=== PATIENT | male | born 1965 | race Caucasian/White ===

== ENCOUNTER 2016-10-02 12:26 | Emergency (ER) | payer MEDICARE, MEDICAID ==
[2016-10-02] MEDS ORDERED: Ketorolac INJ* 60 MG/2 ML VIAL IM ONE (12:39)
[2016-10-02 12:48] VITALS: BP 135/76
--- NOTE | 2016-10-02 13:05 | ED ---
Lower Extremity - HPI Summary HPI Summary: Pt here w/ Lt foot pain this morning. Was walking dog when all of a sudden had a "pop" in foot followed by pain along sole of foot. Worse w/ moving foot. H/o wearing orthotics 20 years ago - has not worn them since. Denies numbness, tingling, weakness. Has not removed sock/shoe yet to observe foot. - History of Current Complaint Chief Complaint: EDExtremityLower Stated Complaint: FOOT PAIN Time Seen by Provider: 10/02/16 12:38 Hx Obtained From: Patient Pain Intensity: 9 - Allergies/Home Medications Allergies/Adverse Reactions: Allergies Allergy/AdvReac Type Severity Reaction Status Date / Time No Known Allergies Allergy Verified 01/11/13 13:11 PMH/Surg Hx/FS Hx/Imm Hx Previously Healthy: Yes Endocrine/Hematology History: Reports: Autoimmune Disease - psoriasis Denies: Hx Anticoagulant Therapy, Hx Blood Disorders Respiratory History: Reports: Hx Seasonal Allergies, Hx Sleep Apnea, Other Respiratory Problems/Disorders - Sleep Apnea, uses C-Pap GI History: Reports: Hx Gastroesophageal Reflux Disease Musculoskeletal History: Reports: Hx Back Problems, Other Musculoskeletal History - Chronic Pain; h/o orthotic use for feet Neurological History: Reports: Other Neuro Impairments/Disorders - pain clinic pt - Surgical History Surgery Procedure, Year, and Place: Appendectomy; Cholecystectomy; Bilateral Great Toenails removed Infectious Disease History: No Infectious Disease History: Denies: Traveled Outside the [place] in Last 30 Days - Social History Lives: With Family Alcohol Use: None Substance Use Type: Reports: None Smoking Status (MU): Never Smoked Tobacco Review of Systems Positive: no symptoms reported Musculoskeletal: Other - see HPI Skin: Negative Neurological: Negative Positive: Anxious All Other Systems Reviewed And Are Negative: Yes Physical Exam Triage Information Reviewed: Yes Vital Signs On Initial Exam: Initial Vitals Temp Pulse Resp BP 96.9 F 97 20 135/76 10/02/16 12:44 10/02/16 12:44 10/02/16 12:44 10/02/16 12:44 Vital Signs Reviewed: Yes Appearance: Positive: Well-Appearing, Pain Distress, Obese Skin: Positive: Warm, Dry - plaques silver flaking skin on erythematous base over body; no erythema or ecchymosis over affected area on foot Eyes: Positive: EOMI ENT: Positive: Hearing grossly normal Respiratory/Lung Sounds: Positive: Breath Sounds Present Cardiovascular: Positive: Pulses are Symmetrical in both Upper and Lower Extremities Musculoskeletal: Positive: Strength/ROM Intact - pain in plantar surface of foot w/ toe movement and ankle movement, Pain @ - MT's - toes and ankle are NTTP Neurological: Positive: Sensory/Motor Intact, Alert, Oriented to Person Place, Time Psychiatric: Positive: Anxious Procedures - Splinting Location: [facility] Hand-Made Type: fiberglass Splint: posterior walking Pre-Proc Neuro Vasc Exam: normal Post-Proc Neuro Vasc Exam: normal Diagnostics - Vital Signs Vital Signs Temp Pulse Resp BP Pulse Ox 10/02/16 12:48 96.9 F 97 20 135/76 98 10/02/16 12:44 96.9 F 97 20 135/76 - Laboratory Lab Statement: Any lab studies that have been ordered have been reviewed, and results considered in the medical decision making process. Lower Extremity Course/Dx - Diagnoses Provider Diagnoses: Fracture of metatarsal of left foot, closed Discharge - Discharge Plan Condition: Stable Disposition: HOME Prescriptions: Ibuprofen TAB* [Motrin TAB* 800 MG] 800 mg PO Q8HR #20 tab Patient Education Materials: Foot Fracture in Adults (ED), [employer] Splints (ED), Crutch Instructions (ED) Referrals: Jan Quinonez MD [Medical Doctor] - Additional Instructions: Keep splint clean, dry and in place until seen by orthopedics - call today to schedule follow-up appointment later this week or next. Use crutches to remain non-weight bearing Rest, ice, elevate You may take ibuprofen 800mg every 8 hours with food for pain. You also have pain medications at home which you may take for breakthrough pain.
--- NOTE | 2016-10-02 13:22 | RAD ---
INDICATION: Left foot injury. TECHNIQUE: 3 views of the left foot were obtained. FINDINGS: The bones are normal alignment. There is a transverse nondisplaced fracture of the proximal diaphysis and metaphysis of the fifth metatarsal. No other fractures are seen. Joint spaces appear maintained. IMPRESSION: TRANSVERSE NONDISPLACED FRACTURE OF THE FIFTH METATARSAL.
[2016-10-02] MEDS ORDERED: HYDROcodone/ACETAMIN 5-325 MG* 1 TAB PO ONE (13:53)
== END 2016-10-02 14:51 | disposition home or self-care (01) ==
LOC: ED 12:26
DX: S92.355A Nondisplaced fracture of fifth metatarsal bone, left foot, initial encounter for closed fracture (principal); X58.XXXA Exposure to other specified factors, initial encounter; Y93.K1 Activity, walking an animal; Y92.9 Unspecified place or not applicable; L40.9 Psoriasis, unspecified; K21.9 Gastro-esophageal reflux disease without esophagitis; E66.9 Obesity, unspecified; Z90.49 Acquired absence of other specified parts of digestive tract
CPT/HCPCS: 96372; 99283; J1885

== ENCOUNTER 2019-01-17 12:17 | Emergency (ER) | payer MEDICARE, MEDICAID ==
[2019-01-17] MEDS ORDERED: Ketorolac INJ* 30 MG/ML 1 ML VIAL IV PUSH ONE (12:37)
[2019-01-17] MEDS ORDERED: Ondansetron INJ* 2 MG/ML VIAL IV ONE (12:38)
--- NOTE | 2019-01-17 12:39 | ED ---
Complex/Multi-Sys Presentation - HPI Summary HPI Summary: Patient is a 53 y/o M presenting to [facility] with complaints of right back pain and right-sided abdominal pain for the past week. He describes the pain as constant and rates it 9/10. Nausea is endorsed but vomiting is denied. He denies PMHx. PSHx of cholecystectomy and appendectomy is noted. He reports some marijuana usage and notes that he is a former tobacco smoker. Alcohol and any other substance usage is denied. FMHx is denied as well. Home medications and allergies are reviewed. - History Of Current Complaint Chief Complaint: EDAbdPain Hx Obtained From: Patient Onset/Duration: Lasting Weeks, Still Present Timing: Constant, Weeks Severity Currently: Severe Location: Pain At: - right back, right abdomen Associated Signs And Symptoms: Positive: Nausea, Abdominal Pain, Back Pain. Negative: Vomiting - Allergies/Home Medications Allergies/Adverse Reactions: Allergies Allergy/AdvReac Type Severity Reaction Status Date / Time No Known Allergies Allergy Verified 01/17/19 12:20 PMH/Surg Hx/FS Hx/Imm Hx Endocrine/Hematology History: Denies: Hx Anticoagulant Therapy, Hx Blood Disorders Respiratory History: Reports: Hx Seasonal Allergies, Hx Sleep Apnea, Other Respiratory Problems/Disorders - Sleep Apnea, uses C-Pap GI History: Reports: Hx Gastroesophageal Reflux Disease Musculoskeletal History: Reports: Hx Back Problems, Other Musculoskeletal History - Chronic Pain; h/o orthotic use for feet Neurological History: Reports: Other Neuro Impairments/Disorders - pain clinic pt - Surgical History Surgery Procedure, Year, and Place: Appendectomy; Cholecystectomy; Bilateral Great Toenails removed Infectious Disease History: No Infectious Disease History: Denies: Traveled Outside the [place] in Last 30 Days - Family History Known Family History: Negative: Cardiac Disease, Hypertension, Diabetes - Social History Alcohol Use: None Substance Use Type: Reports: None Smoking Status (MU): Never Smoked Tobacco Review of Systems Positive: Abdominal Pain, Nausea. Negative: Vomiting Musculoskeletal: Other - positive - right back pain All Other Systems Reviewed And Are Negative: Yes Physical Exam - Summary Physical Exam Summary: VITAL SIGNS: Reviewed. GENERAL: Patient is a well-developed and obese male who is lying comfortable in the stretcher. Patient is in acute distress secondary to pain. Right CVA tenderness is noted. HEAD AND FACE: No signs of trauma. No ecchymosis, hematomas or skull depressions. No sinus tenderness. EYES: PERRLA, EOMI x 2, No injected conjunctiva, no nystagmus. EARS: Hearing grossly intact. Ear canals and tympanic membranes are within normal limits. MOUTH: Oropharynx within normal limits. NECK: Supple, trachea is midline, no adenopathy, no JVD, no carotid bruit, no c- spine tenderness, neck with full ROM. CHEST: Symmetric, no tenderness at palpation. LUNGS: Clear to auscultation bilaterally. No wheezing or crackles. CVS: Regular rate and rhythm, S1 and S2 present, no murmurs or gallops appreciated. ABDOMEN: Soft, obese. Mild tenderness of the right flank, no other tenderness noted. No signs of distention. No rebound, no guarding, and no masses palpated. Bowel sounds are normal. EXTREMITIES: FROM in all major joints, no edema, no cyanosis or clubbing. NEURO: Alert and oriented x 3. No acute neurological deficits. Speech is normal and follows commands. SKIN: Dry and warm. Triage Information Reviewed: Yes Vital Signs On Initial Exam: Initial Vitals Temp Pulse Resp BP Pulse Ox 96.5 F 110 19 158/94 98 01/17/19 12:18 01/17/19 12:18 01/17/19 12:18 01/17/19 12:18 01/17/19 12:18 Vital Signs Reviewed: Yes Procedures - Sedation Patient Received Moderate/Deep Sedation with Procedure: No Diagnostics - Vital Signs Vital Signs Temp Pulse Resp BP Pulse Ox 01/17/19 12:18 96.5 F 110 19 158/94 98 - Laboratory Result Diagrams: 01/17/19 12:45 01/17/19 12:45 Lab Statement: Any lab studies that have been ordered have been reviewed, and results considered in the medical decision making process. - CT ABD/PEL CT CT Interpretation Completed By: Radiologist Summary of CT Findings: 1. No renal calculi or signs of hydronephrosis. 2. Sigmoid diverticulosis. There potentially is wall thickening consistent with mild. diverticulitis but in the absence of oral IV contrast evaluation of the bowel is very. limited. Please correlate to clinical history and physical exam findings. THIS REPORT WAS REVIEWED BY DR. HINSON. - EKG 1256 Cardiac Rate: NL - rate of 90 BPM EKG Rhythm: Sinus Rhythm Summary of EKG Findings: EKG showed NSR with rate of 90 BPM, no ST elevations. This EKG was reviewed and interpreted by Dr. Hinson. Re-Evaluation - Re-Evaluation First Eval Re-Evaluation Time: 15:46 Change: Improved Comment: I reexamined the patient and his symptoms have resolved. Patient has no abdominal tenderness or abdominal pain. Therefore I do not believe that the patient has acute diverticulitis in the absence of increased levels of the wbc s and CRP. Therefore since the patient is asymptomatic, the patients symptoms have resolved, I discussed my physical exam and findings with the patient and he will follow with the primary care physician. He was given instructions to return to the emergency department if the symptoms return or if he develops any other symptom. The patient understands and agrees. Complex Multi-Symp Course/Dx Assessment/Plan: Patient is a 53-year-old male who presents to the emergency department with chief complaint of right abdominal pain and right back pain. Initially, the patient was given IV fluids and Toradol for the pain. The patient noted continued pain, therefore, he was given a dose of morphine. Blood test results without any significant abnormality. Urinalysis is negative for UTI. Abdominal/pelvic CT impression: No renal calculi or signs of hydronephrosis. Sigmoid diverticulosis. There is potentially wall thickening consistent with diverticulitis but in the absence of oral IV contrast evaluation of the above what is very limited. I reexamined the patient and his symptoms have resolved. Patient has no abdominal tenderness or abdominal pain. Therefore I do not believe that the patient has acute diverticulitis in the absence of increased levels of the wbcs and CRP. Therefore since the patient is asymptomatic, the patients symptoms have resolved, I discussed my physical exam and findings with the patient and he will follow with the primary care physician. He was given instructions to return to the emergency department if the symptoms return or if he develops any other symptom. The patient understands and agrees. - Diagnoses Provider Diagnoses: Right flank pain, Right-sided back pain Discharge ED - Sign-Out/Discharge Documenting (check all that apply): Patient Departure - discharge - Discharge Plan Condition: Stable Disposition: HOME Patient Education Materials: Flank Pain (ED), Back Pain (ED) Referrals: Nolberto Alexandre CARDIAC NURSE [Primary Care Provider] - 3 Days Additional Instructions: PLEASE RETURN TO ED FOR ANY NEW OR WORSENING SYMPTOMS. PLEASE FOLLOW UP WITH YOUR PRIMARY CARE PHYSICIAN WITHIN THE NEXT THREE DAYS. - Billing Disposition and Condition Condition: STABLE Disposition: Home - Attestation Statements Document Initiated by Scribahsan: Yes Documenting Scribe: PAM KOHLI Provider For Whom Yusra is Documenting (Include Credential): BRANNON HINSON MD Scribe Attestation: IPAM, scribed for BRANNON HINSON MD on 01/17/19 at 1849. Scribe Documentation Reviewed: Yes Provider Attestation: The documentation as recorded by the PAM chowdhury accurately reflects the service I personally performed and the decisions made by me, BRANNON HINSON MD Status of Scribe Document: Viewed
[2019-01-17 12:57] LABS: ABS Eosinophils 0.1 10^3/ul (0-0.6); ABS Lymphocytes 1.3 10^3/ul (1.0-4.8); ABS Monocytes 0.5 10^3/ul (0-0.8); Eosinophil % 1.6 %; Hematocrit 39 % (42-52); Hemoglobin 13.2 g/dL (14.0-18.0); Lymphocyte % 22.2 %; Mean Corpuscular HGB Conc 34 g/dL (31-36); Mean Corpuscular Hemoglobin 31 pg (27-31); Mean Corpuscular Volume 92 fL (80-94); Mean Platelet Volume 9.8 fL (7.4-10.4); Platelet Count 146 10^3/uL (150-450); Red Blood Count 4.22 10^6 /uL (4.18-5.48); Red Cell Distribution Width 13 % (10-15); White Blood Count 5.9 10^3/uL (3.5-10.8)
[2019-01-17 13:27] LABS: ALT 33 U/L (7-52); AST 28 U/L (13-39); Albumin 3.9 g/dL (3.2-5.2); Albumin/Globulin Ratio 1.3 (1-3); Alkaline Phosphatase 46 U/L (34-104); Anion Gap 6 mmol/L (2-11); BUN/Creatinine Ratio 11.8 (8-20); Blood Urea Nitrogen 13 mg/dL (6-24); C Reactive Protein 7.87 mg/L (<8.01); CO2 Carbon Dioxide 30 mmol/L (22-32); Calcium 9.2 mg/dL (8.6-10.3); Chloride 102 mmol/L (101-111); EGFR African American 85.4 (>60); EGFR Non-African American 70.6 (>60); Glucose 100 mg/dL (70-100); Potassium 3.9 mmol/L (3.5-5.0); Sodium 138 mmol/L (135-145); Total Protein 6.9 g/dL (6.4-8.9)
[2019-01-17] MEDS ORDERED: Morphine 4 MG/ML VIAL (1 ml) 4 MG/ML VIAL IV ONE (14:39)
[2019-01-17 14:56] LABS: Urine Appearance Clear; Urine Color Yellow
[2019-01-17 14:57] LABS: Urine Bilirubin Negative (Negative); Urine Blood Negative (Negative); Urine Glucose Negative (Negative); Urine Ketones Negative (Negative); Urine Nitrite Negative (Negative); Urine Protein Negative (Negative); Urine Specific Gravity 1.005 (1.010-1.030); Urine Urobilinogen Negative (Negative)
[2019-01-17 16:06] VITALS: BP 145/86
== END 2019-01-17 16:04 | disposition home or self-care (01) ==
LOC: ED 12:17
DX: K57.32 Diverticulitis of large intestine without perforation or abscess without bleeding (principal); M54.9 Dorsalgia, unspecified; R10.9 Unspecified abdominal pain; R11.0 Nausea; Z90.49 Acquired absence of other specified parts of digestive tract; Z90.89 Acquired absence of other organs
CPT/HCPCS: 36415; 74176; 80053; 81003; 83605; 83690; 85025; 86140; 93005; 96374; 96375; 99283; J1885; J2270; J2405

== ENCOUNTER 2023-05-31 15:46 | Inpatient (IN) ==
[2023-05-31 16:32] LABS: ABS Lymphocytes 0.7 10^3/uL (1.0-4.8); ABS Monocytes 0.6 10^3/uL (0.0-1.1); ABS Neutrophils 5.9 10^3/uL (1.5-7.6); ABS Nucleated RBC 0.01 10^3/ul; Hematocrit 42.1 % (38-53); Hemoglobin 14.7 g/dL (13.2-16.3); Lymphocyte % 9.9 %; Mean Corpuscular Hemoglobin 31.2 pg (27-33); Mean Corpuscular Hgb Conc 34.9 g/dL (31-36); Mean Corpuscular Volume 89.3 fL (80-97); Nucleated Red Blood Cells % 0.2 %/100WBC (0.0-0.8); Platelet Count 112 10^3/uL (150-450); Red Blood Count 4.71 10^6/uL (4.06-5.63); Red Cell Distribution Width 13.8 % (12-17); White Blood Count 7.3 10^3/uL (3.6-10.2)
[2023-05-31] MEDS: NS 0.9% 1000 ml BAG 1,000 ML IV ONE (16:50)
[2023-05-31 16:51] LABS: INR 1.15 (0.83-1.13)
[2023-05-31 17:20] LABS: Albumin/Globulin Ratio 1.2 (1-3); C Reactive Protein 99.08 mg/L (<8.01); Calcium 8.8 mg/dL (8.6-10.3); Creatinine, Serum 1.12 mg/dL (0.67-1.17); Globulin 3.4 g/dL (2-4); Potassium 3.4 mmol/L (3.5-5.0); Total Protein 7.4 g/dL (6.4-8.9); eGFR CKD-EPI 77.6 (>60)
[2023-05-31 17:39] LABS: Venous Bicarbonate HCO3 24.8 mmol/L (24-28)
[2023-05-31 18:07] LABS: High Sensitivity Troponin 1 Hr 34 pg/mL (<20)
[2023-05-31] MEDS: Iohexol 300 (CONTRAST) 10 ML SDV IV ONE (18:45)
[2023-05-31 19:04] LABS: HIV 4th Generation Nonreactive (Nonreactive)
[2023-05-31] MEDS: Acetaminophen IV 1 GM/100ML 1,000 MG/100 ML BAG IV ONE (19:33)
[2023-05-31 19:38] LABS: Urine Appearance Clear; Urine Bacteria Absent /HPF (Absent); Urine Bilirubin Negative (Negative); Urine Blood 1+ (Negative); Urine Color Yellow; Urine Glucose Negative (Negative); Urine Ketones Negative (Negative); Urine Nitrite Negative (Negative); Urine Protein 1+ (>=30 mg/dL) (Negative); Urine Red Blood Cell 2+(6-10/hpf) /HPF (0-Trace); Urine Specific Gravity >1.050 (1.002-1.030); Urine Urobilinogen 1+ (Negative); Urine White Blood Cell Trace(0-5/hpf) /HPF (0-Trace); Urine pH 5.5 (5.0-8.0)
[2023-05-31] MEDS: Piperacillin/Tazobac 3.375 BAG 3.375 GM/100 ML BAG IV ONE (20:01)
[2023-05-31] MEDS ORDERED: Zosyn per Pharmacy NOTE FOLLOW UP SCH (21:00)
[2023-05-31] MEDS ORDERED: Metoprolol Tartrate 5 mg VIAL 5 ml VIAL (1 mg/ml) IV PRN (21:26)
[2023-05-31] MEDS: Pantoprazole VIAL 40 MG VIAL IV SCH (23:03)
[2023-05-31] MEDS: Metoprolol Tartrate 5 mg VIAL 5 ml VIAL (1 mg/ml) IV SCH (23:03)
[2023-05-31] MEDS: Acetaminophen IV 1 GM/100ML 1,000 MG/100 ML BAG IV PRN (23:04)
[2023-05-31] MEDS: Enoxaparin 40 MG/0.4 ML SYR SUBCUT ONE (23:04)
[2023-05-31] MEDS: KCL 20 MEQ/100 ML IVPREMIX 20 MEQ/100 ML BAG IV SCH (23:05)
[2023-05-31] MEDS: Enoxaparin 40 MG/0.4 ML SYR SUBCUT SCH (23:05)
[2023-05-31] MEDS ORDERED: Fluticasone NASAL SPRAY 50MCG 16 gm SPRAY BTL INTRANASAL PRN (23:24)
[2023-05-31] MEDS: Lactated Ringers 1000 ml BAG 1,000 ML IV SCH (23:33)
[2023-05-31] MEDS: KCL premix 10 MEQ/50 ML x 6 RUNS IV SCH (23:33)
[2023-05-31] MEDS: NS 0.9% 1000 ml BAG 1,000 ML IV SCH (23:37)
[2023-06-01] MEDS ORDERED: ZOSYN 3.375 GM Q8H per EXTENDED INFUSION IV SCH
[2023-06-01] MEDS: ZOSYN 3.375 GM Q8H per EXTENDED INFUSION IV SCH (00:29)
[2023-06-01] MEDS ORDERED: Benzocaine/Menthol Pain Spray - BTL 78 GM TOPICAL ONE (03:11)
[2023-06-01] MEDS: Phenol 1.4% Throat Spray BTL MT PRN (04:17)
[2023-06-01 05:46] LABS: Albumin 3.4 g/dL (3.2-5.2); Albumin/Globulin Ratio 1.3 (1-3); Calcium 7.7 mg/dL (8.6-10.3); Creatinine, Serum 1.01 mg/dL (0.67-1.17); Globulin 2.6 g/dL (2-4); Magnesium 1.9 mg/dL (1.9-2.7); Potassium 3.6 mmol/L (3.5-5.0); Total Bilirubin 1.7 mg/dL (0.2-1.0); eGFR CKD-EPI 87.8 (>60)
[2023-06-01 06:21] LABS: Hematocrit 40.3 % (38-53); Hemoglobin 13.6 g/dL (13.2-16.3); Mean Corpuscular Hemoglobin 30.7 pg (27-33); Mean Corpuscular Hgb Conc 33.8 g/dL (31-36); Mean Corpuscular Volume 90.7 fL (80-97); Red Blood Count 4.44 10^6/uL (4.06-5.63); Red Cell Distribution Width 13.8 % (12-17); White Blood Count 8.4 10^3/uL (3.6-10.2)
[2023-06-01 06:24] LABS: ABS Lymphocytes 1.4 10^3/uL (1.0-4.8); ABS Monocytes 0.4 10^3/uL (0.0-1.1); ABS Neutrophils 6.5 10^3/uL (1.5-7.6); ABS Nucleated RBC 0.01 10^3/ul; Lymphocyte % 17.1 %; Mean Platelet Volume 10.5 fL (7.5-11.2); Nucleated Red Blood Cells % 0.1 %/100WBC (0.0-0.8)
[2023-06-01 06:57] LABS: Hematocrit 37.3 % (38-53); Hemoglobin 12.7 g/dL (13.2-16.3)
[2023-06-01] MEDS: NS 0.9% 1000 ml BAG 1,000 ML IV SCH (13:07)
[2023-06-01] MEDS: Enoxaparin 40 MG/0.4 ML SYR SUBCUT ONE (21:15)
[2023-06-01] MEDS: CMCS:Ranolazine 500 mg TAB ER (NF) PO SCH (21:15)
[2023-06-02 06:01] LABS: ABS Lymphocytes 1.2 10^3/uL (1.0-4.8); ABS Monocytes 0.7 10^3/uL (0.0-1.1); ABS Neutrophils 4.7 10^3/uL (1.5-7.6); Eosinophil % 0.1 %; Hematocrit 34.4 % (38-53); Hemoglobin 11.9 g/dL (13.2-16.3); Lymphocyte % 17.7 %; Mean Corpuscular Hemoglobin 31.2 pg (27-33); Mean Corpuscular Hgb Conc 34.7 g/dL (31-36); Mean Corpuscular Volume 89.9 fL (80-97); Mean Platelet Volume 10.3 fL (7.5-11.2); Nucleated Red Blood Cells % 0.1 %/100WBC (0.0-0.8); Platelet Count 97 10^3/uL (150-450); Red Blood Count 3.82 10^6/uL (4.06-5.63); Red Cell Distribution Width 13.6 % (12-17); White Blood Count 6.6 10^3/uL (3.6-10.2)
[2023-06-02 06:16] LABS: Calcium 7.7 mg/dL (8.6-10.3); Creatinine, Serum 0.88 mg/dL (0.67-1.17); Potassium 3.5 mmol/L (3.5-5.0); eGFR CKD-EPI 101.5 (>60)
[2023-06-02] MEDS: DULoxetine DR 60 mg CAP PO SCH (08:44)
[2023-06-02] MEDS: Ondansetron 4 mg VIAL 2 MG/ML 2 ml VIAL IV PRN (10:17)
[2023-06-02] MEDS: Aspirin EC 81 mg TAB.EC (enteric coated) PO SCH (13:40)
[2023-06-02] MEDS: Enoxaparin 40 MG/0.4 ML SYR SUBCUT SCH (21:06)
[2023-06-03 05:15] LABS: ABS Lymphocytes 1.5 10^3/uL (1.0-4.8); ABS Monocytes 0.8 10^3/uL (0.0-1.1); ABS Neutrophils 6.1 10^3/uL (1.5-7.6); Eosinophil % 0.3 %; Hematocrit 34.6 % (38-53); Lymphocyte % 17.5 %; Mean Corpuscular Hemoglobin 31.2 pg (27-33); Mean Corpuscular Hgb Conc 34.6 g/dL (31-36); Mean Corpuscular Volume 90.1 fL (80-97); Mean Platelet Volume 10.5 fL (7.5-11.2); Platelet Count 113 10^3/uL (150-450); Red Blood Count 3.84 10^6/uL (4.06-5.63); Red Cell Distribution Width 13.4 % (12-17); White Blood Count 8.5 10^3/uL (3.6-10.2)
[2023-06-03 05:32] LABS: Albumin 3.1 g/dL (3.2-5.2); Albumin/Globulin Ratio 1.1 (1-3); Calcium 7.8 mg/dL (8.6-10.3); Creatinine, Serum 0.93 mg/dL (0.67-1.17); Globulin 2.9 g/dL (2-4); Potassium 3.5 mmol/L (3.5-5.0); Total Bilirubin 1.1 mg/dL (0.2-1.0)
[2023-06-04 06:07] LABS: ABS Lymphocytes 1.4 10^3/uL (1.0-4.8); ABS Neutrophils 5.8 10^3/uL (1.5-7.6); Eosinophil % 0.4 %; Hematocrit 32.5 % (38-53); Hemoglobin 11.3 g/dL (13.2-16.3); Lymphocyte % 16.4 %; Mean Corpuscular Hemoglobin 31.2 pg (27-33); Mean Corpuscular Hgb Conc 34.7 g/dL (31-36); Mean Corpuscular Volume 89.8 fL (80-97); Mean Platelet Volume 11.2 fL (7.5-11.2); Platelet Count 135 10^3/uL (150-450); Red Blood Count 3.62 10^6/uL (4.06-5.63); Red Cell Distribution Width 13.4 % (12-17); White Blood Count 8.2 10^3/uL (3.6-10.2)
[2023-06-04 07:43] LABS: Calcium 7.8 mg/dL (8.6-10.3); Creatinine, Serum 0.95 mg/dL (0.67-1.17); Potassium 3.5 mmol/L (3.5-5.0); eGFR CKD-EPI 94.5 (>60)
[2023-06-05 06:35] LABS: ABS Lymphocytes 1.3 10^3/uL (1.0-4.8); ABS Monocytes 0.9 10^3/uL (0.0-1.1); ABS Neutrophils 5.7 10^3/uL (1.5-7.6); Eosinophil % 0.6 %; Hemoglobin 11.4 g/dL (13.2-16.3); Lymphocyte % 16.4 %; Mean Corpuscular Hemoglobin 31.1 pg (27-33); Mean Corpuscular Hgb Conc 34.6 g/dL (31-36); Mean Corpuscular Volume 89.8 fL (80-97); Mean Platelet Volume 10.2 fL (7.5-11.2); Platelet Count 191 10^3/uL (150-450); Red Blood Count 3.67 10^6/uL (4.06-5.63); Red Cell Distribution Width 13.4 % (12-17)
[2023-06-05 06:41] LABS: Calcium 7.8 mg/dL (8.6-10.3); Creatinine, Serum 0.88 mg/dL (0.67-1.17); Potassium 3.6 mmol/L (3.5-5.0); eGFR CKD-EPI 101.5 (>60)
[2023-06-06 09:13] VITALS: BP 121/73
== END 2023-06-06 12:50 | disposition home or self-care (01) | DRG 872 ==
LOC: ED 15:46 → SUATTDRO 20:16 → EDHOLD 20:16 → MED 21:44
PROVIDERS: ADMIT Internal Medicine; ATTEND Internal Medicine

== ENCOUNTER 2024-03-26 18:00 | Inpatient (IN) ==
[2024-03-26 18:36] LABS: ABS Basophils 0.1 10^3/uL (0.0-0.1); ABS Eosinophils 0.1 10^3/uL (0.0-0.5); ABS Lymphocytes 1.7 10^3/uL (1.0-4.8); ABS Monocytes 0.6 10^3/uL (0.0-1.1); ABS Neutrophils 7.1 10^3/uL (1.5-7.6); ABS Nucleated RBC 0.02 10^3/ul; Eosinophil % 0.6 %; Hematocrit 43.1 % (38-53); Hemoglobin 14.8 g/dL (13.2-16.3); Lymphocyte % 17.5 %; Mean Corpuscular Hemoglobin 31.6 pg (27-33); Mean Corpuscular Hgb Conc 34.4 g/dL (31-36); Mean Corpuscular Volume 91.8 fL (80-97); Mean Platelet Volume 9.5 fL (7.5-11.2); Nucleated Red Blood Cells % 0.2 %/100WBC (0.0-0.8); Platelet Count 156 10^3/uL (150-450); Red Blood Count 4.69 10^6/uL (4.06-5.63); White Blood Count 9.6 10^3/uL (3.6-10.2)
[2024-03-26 18:52] LABS: INR 1.08 (0.85-1.14)
[2024-03-26 19:15] LABS: Albumin 4.3 g/dL (3.5-5.7); Albumin/Globulin Ratio 1.5 (1-3); Calcium 9.2 mg/dL (8.6-10.3); Creatinine, Serum 1.04 mg/dL (0.67-1.17); Globulin 2.8 g/dL (2-4); Total Bilirubin 0.5 mg/dL (0.2-1.0); Total Protein 7.1 g/dL (6.4-8.9); eGFR CKD-EPI 84.3 (>60)
[2024-03-26 20:02] LABS: High Sensitivity Troponin 1 Hr 19 pg/mL (<20)
[2024-03-26 21:18] LABS: High Sensitivity Troponin 3 Hr 18 pg/mL (<20)
[2024-03-26] MEDS: Pantoprazole VIAL 40 MG VIAL IV ONE (23:02)
[2024-03-26] MEDS: Al Hydrox/Mg Hydrox/Simet LIQ 30 ML UDC PO ONE (23:08)
[2024-03-27] MEDS ORDERED: Sulfur Hexaflouride MICROSPHR 25 MG VIAL IV PRN (05:42)
[2024-03-27 05:56] LABS: Hematocrit 42.6 % (38-53); Hemoglobin 14.8 g/dL (13.2-16.3); Mean Corpuscular Hemoglobin 32.1 pg (27-33); Mean Corpuscular Hgb Conc 34.8 g/dL (31-36); Mean Corpuscular Volume 92.3 fL (80-97); Mean Platelet Volume 9.4 fL (7.5-11.2); Platelet Count 147 10^3/uL (150-450); Red Blood Count 4.61 10^6/uL (4.06-5.63); Red Cell Distribution Width 14.2 % (12-17)
[2024-03-27 06:15] LABS: Calcium 8.8 mg/dL (8.6-10.3); Creatinine, Serum 1.15 mg/dL (0.67-1.17); HDL Cholesterol 41.8 mg/dL; eGFR CKD-EPI 74.7 (>60)
[2024-03-27] MEDS: Enoxaparin 40 MG/0.4 ML SYR SUBCUT SCH (06:15)
[2024-03-27] MEDS: Aspirin EC 81 mg TAB.EC (enteric coated) PO SCH (09:39)
[2024-03-27] MEDS: CMC:Ranolazine 500 mg TAB ER (NF) PO SCH (09:40)
[2024-03-27] MEDS: CMC:Prasugrel 10 mg TAB (NF) PO SCH (09:41)
[2024-03-27 18:15] LABS: Ferritin 94.1 ng/mL (24-336)
[2024-03-28] MEDS: DULoxetine DR 60 mg CAP PO SCH (14:01)
[2024-03-29 06:29] LABS: ABS Eosinophils 0.1 10^3/uL (0.0-0.5); ABS Lymphocytes 2.2 10^3/uL (1.0-4.8); ABS Monocytes 0.7 10^3/uL (0.0-1.1); ABS Neutrophils 6.3 10^3/uL (1.5-7.6); ABS Nucleated RBC 0.01 10^3/ul; Hematocrit 40.3 % (38-53); Hemoglobin 14.2 g/dL (13.2-16.3); Lymphocyte % 23.5 %; Mean Corpuscular Hemoglobin 32.2 pg (27-33); Mean Corpuscular Hgb Conc 35.1 g/dL (31-36); Mean Corpuscular Volume 91.7 fL (80-97); Mean Platelet Volume 9.8 fL (7.5-11.2); Nucleated Red Blood Cells % 0.1 %/100WBC (0.0-0.8); Platelet Count 140 10^3/uL (150-450); White Blood Count 9.2 10^3/uL (3.6-10.2)
[2024-03-29 06:40] LABS: Calcium 9.1 mg/dL (8.6-10.3); Creatinine, Serum 1.12 mg/dL (0.67-1.17); Magnesium 2.2 mg/dL (1.9-2.7); Potassium 4.3 mmol/L (3.5-5.0); eGFR CKD-EPI 77.1 (>60)
[2024-03-29] MEDS ORDERED: Regadenoson 0.4 MG/5 ML SYRINGE ONE (08:57)
[2024-03-29] MEDS ORDERED: Aminophylline 25 MG/ML VIAL ONE (08:57)
[2024-03-29 22:22] LABS: High Sensitivity Troponin 1 Hr 12 pg/mL (<20)
[2024-03-30] MEDS: Morphine 2 MG/ML SYRINGE IV ONE (04:10)
[2024-03-30 06:28] LABS: ABS Eosinophils 0.1 10^3/uL (0.0-0.5); ABS Monocytes 0.7 10^3/uL (0.0-1.1); ABS Neutrophils 5.7 10^3/uL (1.5-7.6); ABS Nucleated RBC 0.01 10^3/ul; Eosinophil % 0.9 %; Hematocrit 40.8 % (38-53); Hemoglobin 14.1 g/dL (13.2-16.3); Lymphocyte % 23.4 %; Mean Corpuscular Hemoglobin 31.5 pg (27-33); Mean Corpuscular Hgb Conc 34.4 g/dL (31-36); Mean Corpuscular Volume 91.5 fL (80-97); Mean Platelet Volume 9.5 fL (7.5-11.2); Nucleated Red Blood Cells % 0.1 %/100WBC (0.0-0.8); Platelet Count 147 10^3/uL (150-450); Red Blood Count 4.46 10^6/uL (4.06-5.63); Red Cell Distribution Width 13.9 % (12-17); White Blood Count 8.5 10^3/uL (3.6-10.2)
[2024-03-30 06:54] LABS: Calcium 8.9 mg/dL (8.6-10.3); Creatinine, Serum 1.12 mg/dL (0.67-1.17); Magnesium 2.2 mg/dL (1.9-2.7); Potassium 4.2 mmol/L (3.5-5.0); eGFR CKD-EPI 77.1 (>60)
[2024-03-30 14:39] VITALS: BP 106/67
== END 2024-03-30 16:15 | disposition home or self-care (01) | DRG 392 ==
LOC: EDHOLD 18:00 → ED 18:00 → SUATTDRO 03-27 02:40 → MEDTELE 03-27 03:46 → SUATTDRO 03-29 11:44
PROVIDERS: ADMIT Student in an Organized Health Care Education/Training Program; ATTEND Internal Medicine